=== PATIENT | female | born 1945 | race Caucasian/White ===

== ENCOUNTER 2021-03-21 14:31 | Observation (INO) ==
[2021-03-21] MEDS ORDERED: diphenhydrAMINE CAP 25 MG CAPSULE PO PRN (16:59)
[2021-03-21] MEDS ORDERED: ACETAMINOPHEN 325 MG TABLET PO PRN (16:59)
[2021-03-21] MEDS ORDERED: guaiFENesin/DM ER 600-30 MG TABLET PO PRN (16:59)
[2021-03-21] MEDS ORDERED: NICOTINE 21 MG/24 HR PATCH TRANSDERM PRN (16:59)
[2021-03-21] MEDS ORDERED: GLUCAGON 1 MG VIAL IM PRN ×2 (16:59→17:54)
[2021-03-21] MEDS ORDERED: DEXTROSE 50% 25 GM/50 ML VIAL IV PRN ×2 (16:59→17:54)
[2021-03-21] MEDS ORDERED: DOCUSATE SODIUM 100 MG CAPSULE PO PRN (16:59)
[2021-03-21] MEDS ORDERED: ZALEPLON 5 MG CAPSULE PO PRN (16:59)
[2021-03-21] MEDS ORDERED: MORPHINE 2 MG/1 ML SYRINGE IV PRN (16:59)
[2021-03-21] MEDS ORDERED: ONDANSETRON 4 MG/2 ML VIAL IV PRN (16:59)
[2021-03-21] MEDS ORDERED: hydrALAZINE 20 MG/1 ML VIAL IV PRN (16:59)
[2021-03-21] MEDS ORDERED: INFLUENZA VIRUS VACCINE 0.5 ML SYRINGE IM ONE (17:18)
[2021-03-21] MEDS: HEPARIN 5,000 UNIT/1 ML VIAL SUBCUT SCH (17:42)
[2021-03-21] MEDS ORDERED: LORazepam 1 MG TABLET PO PRN (17:54)
[2021-03-21] MEDS ORDERED: predniSONE 20 MG TABLET PO ONE (17:57)
[2021-03-21 18:43] LABS: Basophils # 0.1 10*3/uL (0.0-0.2); Basophils % 0.8 % (0.0-0.8); Eosinophils # 0.2 10*3/uL (0.0-0.87); Eosinophils % 1.9 % (0.00-10.9); Hematocrit 37.6 VOL% (35.7-47.0); Hemoglobin 11.8 GM/DL (12.0-16.0); Immature Granulocytes % 0.4 %; Immature Granulocytes Absolute 0.03 #; Lymphocytes # 1.6 10*3/uL (1.4-4.0); Lymphocytes % 19.1 % (21.3-54.2); Mean Corpuscular HGB Conc 31.4 GM/DL (32-36); Mean Corpuscular Volume 91.9 FL (87-102); Mean Platelet Volume 9.7 FL (9.6-12.0); Monocytes % 10.3 % (1.7-12.7); Neutrophils % 67.5 % (38.7-73.9); Platelet Count 272 T/CUMM (130-400); Red Blood Count 4.09 MC/CUMM (3.8-5.5); White Blood Count 8.3 T/CUMM (4-12)
[2021-03-21 18:55] LABS: Calcium 8.9 MG/DL (8.5-10.1); Osmolality,Calculated 281.5 MOS/KG (273-304); Potassium 4.2 MMOL/L (3.5-5.1)
[2021-03-21 19:00] LABS: PT Patient Result 11.4 SECS (10.5-12.0); Partial Thromboplastin Time 23.9 SECS (23.9-33.8)
[2021-03-21] MEDS ORDERED: VENLAFAXINE XR 75 MG CAPSULE PO SCH (21:00)
[2021-03-21] MEDS ORDERED: SIMVASTATIN 10 MG TABLET PO SCH (21:00)
[2021-03-21] MEDS ORDERED: DONEPEZIL 10 MG TABLET PO SCH (21:00)
[2021-03-21] MEDS: INSULIN LISPRO 100 UNIT/ML SUBCUT SCH (21:13)
[2021-03-22] MEDS: HEPARIN 5,000 UNIT/1 ML VIAL SUBCUT SCH (04:54)
[2021-03-22] MEDS ORDERED: LEVOTHYROXINE 125 MCG TABLET PO SCH (06:30)
[2021-03-22 06:59] LABS: Basophils # 0.1 10*3/uL (0.0-0.2); Basophils % 0.8 % (0.0-0.8); Eosinophils # 0.1 10*3/uL (0.0-0.87); Eosinophils % 1.2 % (0.00-10.9); Hematocrit 38.2 VOL% (35.7-47.0); Hemoglobin 11.9 GM/DL (12.0-16.0); Immature Granulocytes % 0.5 %; Immature Granulocytes Absolute 0.05 #; Lymphocytes # 1.8 10*3/uL (1.4-4.0); Lymphocytes % 19.5 % (21.3-54.2); Mean Corpuscular HGB Conc 31.2 GM/DL (32-36); Mean Corpuscular Volume 92.7 FL (87-102); Monocytes % 8.8 % (1.7-12.7); Neutrophils % 69.2 % (38.7-73.9); Platelet Count 272 T/CUMM (130-400); Red Blood Count 4.12 MC/CUMM (3.8-5.5); Red Cell Distribution Width 12.8 % (9.3-17.3); White Blood Count 9.1 T/CUMM (4-12)
[2021-03-22 07:14] LABS: Calcium 9.1 MG/DL (8.5-10.1); Osmolality,Calculated 279.5 MOS/KG (273-304)
[2021-03-22] MEDS ORDERED: PANTOPRAZOLE 40 MG TABLET PO SCH (09:00)
[2021-03-22] MEDS ORDERED: METOPROLOL SUCCINATE XL 50 MG TABLET PO SCH (09:00)
[2021-03-22] MEDS: INSULIN LISPRO 100 UNIT/ML SUBCUT SCH ×2 (11:05→14:10)
[2021-03-22 12:14] VITALS: BP 151/82
[2021-03-22] MEDS ORDERED: SIMVASTATIN 20 MG TABLET PO SCH (21:00)
[2021-03-23] MEDS ORDERED: ASPIRIN EC 81 MG TABLET PO SCH (09:00)
== END 2021-03-22 14:22 | disposition home or self-care (01) ==
LOC: N.TELES → SUATTDRO 16:40
PROVIDERS: ADMIT Internal Medicine; ATTEND Hospitalist